=== PATIENT | female | born 1950 | race Hispanic/Latino ===

== ENCOUNTER → 2017-12-15 | Outpatient (CLI) | payer MEDICARE | END | disposition home or self-care (01) | LOC: SHCH 10:38 | PROVIDERS: ATTEND Internal Medicine Cardiovascular Disease | DX: I87.2 Venous insufficiency (chronic) (peripheral) (principal) | CPT/HCPCS: 93970 ==

== ENCOUNTER → 2018-01-24 | Outpatient (CLI) | payer MEDICARE | END | disposition home or self-care (01) | LOC: SHCH 09:26 | PROVIDERS: ATTEND Internal Medicine Cardiovascular Disease | DX: Z09 Encounter for follow-up examination after completed treatment for conditions other than malignant neoplasm (principal) | CPT/HCPCS: 93971 ==

== ENCOUNTER → 2018-09-14 | Outpatient (CLI) | payer MEDICARE | END | disposition home or self-care (01) | LOC: SHCH 08:00 | PROVIDERS: ATTEND Internal Medicine Cardiovascular Disease | DX: I10 Essential (primary) hypertension (principal) | CPT/HCPCS: 93306 ==

== ENCOUNTER → 2018-09-16 | Outpatient (CLI) | payer MEDICARE ==
[~2018-09-16] VITALS: Ht 157.5 cm; Wt 77.1 kg
[~2018-09-16] MED LIST: REGADENOSON 0.4 MG/5 ML PF SYG IVP SCH
== END | disposition home or self-care (01) ==
LOC: SHCH 08:22
PROVIDERS: ATTEND Internal Medicine Cardiovascular Disease
DX: I10 Essential (primary) hypertension (principal); R06.02 Shortness of breath
CPT/HCPCS: 78452; 93017; 96374; A9500 ×2; J2785

== ENCOUNTER → 2022-05-12 | Outpatient (CLI) | payer OTHER ==
[~2022-05-12] VITALS: Ht 154.9 cm; Wt 84.4 kg
== END | disposition home or self-care (01) ==
LOC: SHCH 08:09
PROVIDERS: ATTEND Internal Medicine Cardiovascular Disease
DX: R06.09 Other forms of dyspnea (principal); I20.9 Angina pectoris, unspecified; R06.02 Shortness of breath
CPT/HCPCS: 78452; 93017; 96374; A9500 ×2; J2785

== ENCOUNTER 2022-08-04 08:44 | Day surgery (SDC) | payer OTHER ==
[2022-07-29 12:08] LABS: BASOPHILS % (AUTO) 0.6 % (0.0-5.0); EOSINOPHILS % (AUTO) 2.9 % (0.0-8.0); HEMATOCRIT 43.9 % (36-48); LYMPHOCYTES % (AUTO) 34.1 % (21.0-51.0); MEAN CORPUSCULAR HGB CONC 31.2 g/dL (32.0-36.0); MONOCYTES % (AUTO) 7.8 % (3.0-13.0); PLATELET COUNT (AUTO) 211 K/uL (130-400); RED BLOOD CELL COUNT(AUTO) 4.72 MIL/uL (4.00-5.50); RED CELL DISTRIBUTION WIDTH 13.4 % (11.0-15.5); WHITE BLOOD COUNT (AUTO) 6.5 K/uL (4.8-10.8)
[2022-07-29 12:16] LABS: CREATININE 1.1 mg/dL (0.5-1.5); POTASSIUM 4.5 mmol/L (3.5-5.1)
[2022-07-30 15:08] VITALS: BP 198/93
[~2022-08-04] VITALS: Ht 157.5 cm; Wt 84.1 kg
[2022-08-04] VITALS (17 sets, daily range): BP systolic 93–156; BP diastolic 51–84
[~2022-08-04 08:44] MED LIST changes: +AEC81 PO; +ATOR40TA69 PO; +FISH1CAP27 PO; +GLIP10TA9 PO; +ISOS10TA2 PO; +LOSA50TA64 PO; +METO100T14 PO; +PHARMACY COMMUNICATION MISC SCH; -REGADENOSON 0.4 MG/5 ML PF SYG IVP SCH; +VENL-191 PO
[2022-08-04] MEDS ORDERED: 0.9%NACL 1000ML 1,000 ML IV ONE (09:24)
[2022-08-04] MEDS ORDERED: TELM1TAB31 PO (10:32)
[2022-08-04] MEDS: CEFAZOLIN SODIUM 1 GM VIAL ONE ×2 (10:44→13:11)
[2022-08-04] MEDS ORDERED: PROPOFOL 10 MG/ML 20ML VIAL IV ONE ×2 (11:26→13:02)
[2022-08-04] MEDS ORDERED: DEXAMETHASONE SOD PHOSPHATE 10MG/ML 1ML VIAL ONE ×2 (11:27→13:02)
[2022-08-04] MEDS ORDERED: MIDAZOLAM HCL 1 MG/ML 2ML VIAL ONE ×2 (11:27→13:02)
[2022-08-04] MEDS ORDERED: FENTANYL CITRATE PF 50 MCG/1 ML 2ML VIAL ONE ×2 (11:27→13:03)
[2022-08-04] MEDS ORDERED: ONDANSETRON 4MG INJ ONE ×2 (11:28→13:03)
[2022-08-04] MEDS ORDERED: LIDOCAINE PF 100MG/5ML (2%) SYRINGE 5ML ONE ×2 (11:33→13:02)
[2022-08-04] MEDS ORDERED: GLYCOPYRROLATE 1 MG/5 ML SYRINGE ONE (13:02)
[2022-08-04] MEDS ORDERED: SUCCINYLCHOLINE CHLORIDE 20 MG/ML 10 ML VIAL ONE (13:02)
[2022-08-04] MEDS ORDERED: ROCURONIUM 10MG/1ML SYR 10 MG/ML ML ONE (13:03)
[2022-08-04] MEDS ORDERED: NEOSTIGMINE 5MG/5ML SYR IV ONE (13:03)
[2022-08-04] MEDS ORDERED: KETOROLAC 15MG/ML VIAL (15MG/ML) ONE (15:00)
== END 2022-08-04 16:15 | disposition home or self-care (01) ==
LOC: DAH 08:44
PROVIDERS: ATTEND Orthopaedic Surgery
DX: M70.41 Prepatellar bursitis, right knee (principal); E11.9 Type 2 diabetes mellitus without complications; I10 Essential (primary) hypertension; Z79.82 Long term (current) use of aspirin; Z79.84 Long term (current) use of oral hypoglycemic drugs; Z79.899 Other long term (current) drug therapy; Z79.01 Long term (current) use of anticoagulants
CPT/HCPCS: 80048; 85025; 87426; 36415; 93005; 27340; 87070; 87076; 87205; 82948 ×2; A6260; A4663; J7030 ×2; J3010; J0690; J3490; J1100 ×2; J2710; J0330; J2001 ×2; J2250; J2704 ×2; J2405 ×2; J1885; A6223; A4649; A4930; A4215; A4223; A4222; A4221

== ENCOUNTER → 2023-09-06 | Outpatient (CLI) | payer OTHER ==
[~2023-09-06] MED LIST changes: -PHARMACY COMMUNICATION MISC SCH; +TELM1TAB31 PO
== END | disposition home or self-care (01) ==
LOC: SHCH 08:40
PROVIDERS: ATTEND Internal Medicine Cardiovascular Disease
DX: I87.2 Venous insufficiency (chronic) (peripheral) (principal); I87.1 Compression of vein; G45.1 Carotid artery syndrome (hemispheric); R06.09 Other forms of dyspnea; R07.9 Chest pain, unspecified
CPT/HCPCS: 93306; 93880; 93970